=== PATIENT | female | born 1950 | race Caucasian/White ===

== ENCOUNTER 2017-02-05 16:47 | Emergency (ER) | payer OTHER ==
[~2017-02-05] VITALS: Wt 59.5 kg
[~2017-02-05 16:47] MED LIST: ACET325T45 PO; ALEN70TA30 PO; AMLO-147 PO; AMOX500T PO; CLAR500T PO; DEXL60CA2 PO; LORA0.5T PO; LOSA50TA6 PO; ONDA4TAB8 PO; PANT40TA3 PO; RANI150T5 PO
[2017-02-05] MEDS ORDERED: SOD CHLORIDE 0.9% 1,000 ML IV STA (17:57)
[2017-02-05] MEDS ORDERED: ONDANSETRON 4 MG INJ IV STA (17:57)
[2017-02-05] MEDS ORDERED: FAMOTIDINE 20 MG INJ IV STA (17:57)
[2017-02-05 18:25] LABS: ADD SCAN DIFF NO
[2017-02-05 18:26] LABS: BASOPHILS % 0.3 % (0.0-2.0); HEMOGLOBIN 13.3 g/dl (12.0-16.0); LYMPHOCYTES # 1.5 10^3/ul (0.8-2.9); LYMPHOCYTES % 19.1 % (15.0-51.0); MEAN CORPUSCULAR HEMOGLOBIN 29.4 pg (29.0-33.0); MEAN CORPUSCULAR HGB CONC 33.3 g/dl (32.0-37.0); MEAN CORPUSCULAR VOLUME 88.5 fl (82.0-101.0); MEAN PLATELET VOLUME 9.7 fl (7.4-10.4); MONOCYTE # 0.5 10^3/ul (0.3-0.9); MONOCYTES % 6.2 % (0.0-11.0); NEUTROPHIL # 5.7 10^3/ul (1.6-7.5); NEUTROPHILS % 74.1 % (39.0-77.0); PLATELET COUNT 290 10^3/UL (140-415); RED BLOOD COUNT 4.52 10^6/ul (4.20-5.40); WHITE BLOOD COUNT 7.6 10^3/ul (4.8-10.8)
[2017-02-05 18:42] LABS: ALBUMIN 4.8 g/dl (3.3-4.9)
[2017-02-05 18:43] LABS: POTASSIUM 3.7 mmol/L (3.5-5.1)
[2017-02-05 18:45] LABS: ALBUMIN/GLOBULIN RATIO 1.14; BILIRUBIN,INDIRECT 0.2 mg/dl (0-1.1); BILIRUBIN,TOTAL 0.2 mg/dl (0.2-1.3); CREATININE 0.69 mg/dl (0.44-1.00)
[2017-02-05 18:46] LABS: CALCIUM 9.3 mg/dl (8.4-10.2)
[2017-02-05 19:01] LABS: ADD UMIC YES; URINE BILIRUBIN (Dip) NEGATIVE (NEGATIVE); URINE BLOOD (Dip) 1+ (NEGATIVE); URINE COLOR LT. YELLOW (YELLOW); URINE GLUCOSE (Dip) NEGATIVE (NEGATIVE); URINE KETONES (Dip) NEGATIVE (NEGATIVE); URINE LEUKOCYTE ESTERASE (Dip) TRACE (NEGATIVE); URINE NITRITE (Dip) NEGATIVE (NEGATIVE); URINE TOTAL PROTEIN (Dip) NEGATIVE (NEGATIVE); URINE UROBILINOGEN (Dip) 0.2 E.U./dL (0.1-1.0)
[2017-02-05 19:07] LABS: URINE RBCS 0-2 /HPF (0)
--- NOTE | 2017-02-05 19:12 | RADRPT ---
PROCEDURE: CT abdomen and pelvis without contrast. CLINICAL INDICATION: Abdominal Pain TECHNIQUE: CT scan of the abdomen and pelvis without contrast was performed and is reconstructed a t 2.5 mm contiguous axial intervals from the dome of the diaphragm to the inferior pubic rami.. The patient was scanned without intravenous contrast. Sagittal and coronal reformatted images were obt ained from the axial source images. The calculated radiation dose measures 337 mGy centimeters. The CTDI measures 7 mGy. COMPARISON: None. FINDINGS: The lung bases are clear of any infiltrate or nodule. No effusion is seen. The liver is of normal size, contour and attenuation with no mass or ductal dilatation. No gallston es are visualized. No splenic, adrenal or pancreatic abnormalities present. Kidneys are of normal size and contour. No hydronephrosis, calculus or masses seen. Ureters are o f normal course and caliber with no stone. No bladder mass or stone is present. Uterus is unremarka ble. No adnexal mass is seen. There is no aneurysm. No adenopathy is present. No bowel mass or obstruction is present. There has been partial resection of the transverse colon . The appendix is normal. No phlegmon, ascites or pneumoperitoneum is visualized. There is a chronic moderate superior endplate compression fracture of L1. IMPRESSION: No evidence of urolithiasis, obstructive uropathy, diverticulitis or appendicitis. Status post resection transverse colon. No bowel mass or obstruction. Chronic superior endplate compression fracture L1. .Zac Gerber MD, MD Date Time Electronically viewed and signed by .Zac Gerber MD, on 02/05/2017 19:11 .A/
[2017-02-05] MEDS ORDERED: CIPR500T4 PO (19:20)
--- NOTE | 2017-02-05 19:20 | ERD ---
ER Documentation Chief Complaint Date/Time DATE: 02/05/17 TIME: 19:18 Chief Complaint EPIGASTRIC PAIN WITH NAUSEA SINCE AM HPI This is a 66-year-old female presents to the emergency room for evaluation of abdominal cramping, nausea for one days duration. The patient localizes her cramping to the midportion of abdomen denies any radiation. She denies any associated diarrhea with this, and states that her coughing is sometimes worse when she urinates. The patient does state she has had multiple previous abdominal surgeries, and came to the ER today for further evaluation of her symptoms. ROS All systems reviewed and are negative except as per history of present illness. Medications Home Meds Active Scripts Ondansetron Hcl* (Zofran*) 4 Mg Tablet, 4 MG PO Q8H Y for NAUSEA AND/OR VOMITING , #20 TAB Prov:ANALY AMARAL MD 03/04/16 Pantoprazole* (Protonix*) 40 Mg Tablet., 40 MG PO DAILY, #20 TAB Prov:YASMANY REARDON MD 11/08/15 Reported Medications Dexlansoprazole (Dexilant) 60 Mg Cap., 60 MG PO QAM, #30 CAP 03/04/16 Clarithromycin* (Clarithromycin*) 500 Mg Tablet, 500 MG PO BID, TAB 03/04/16 Amoxicillin* (Amoxil*) 500 Mg Tablet, 500 MG PO BID, TAB PER PT STARTED 02/27/16 03/04/16 Dexlansoprazole (Dexilant) 60 Mg Cap., 60 MG PO QAM, #30 CAP 03/04/16 Acetaminophen* (Acetaminophen*) 325 Mg Tablet, 325 MG PO Q4H Y for PAIN AND OR ELEVATED TEMP, #30 TAB 02/27/16 Amlodipine Besylate* (Amlodipine Besylate*) 10 Mg Tablet, 10 MG PO DAILY, #30 TAB 02/27/16 Losartan Potassium* (Losartan Potassium*) 50 Mg Tablet, 50 MG PO DAILY, TAB 02/27/16 Alendronate Sodium* (Fosamax*) 70 Mg Tablet, 70 MG PO SUNDAYS, #4 TAB 02/27/16 Lorazepam* (Lorazepam*) 0.5 Mg Tablet, 0.5 MG PO Q8 Y for NAUSEA, TAB 02/27/16 Ranitidine Hcl* (Ranitidine Hcl*) 150 Mg Tablet, 150 MG PO Q12, #60 TAB 02/27/16 Allergies Allergies: Coded Allergies: No Known Allergy (Unverified , 11/24/14) PMhx/Soc History of Surgery: Yes (colon resection ) Anesthesia Reaction: No Hx Neurological Disorder: No Hx Respiratory Disorders: No Hx Cardiac Disorders: Yes (HTN) Hx Psychiatric Problems: Yes (anixety) Hx Miscellaneous Medical Probl: No Hx Alcohol Use: No Hx Substance Use: No Hx Tobacco Use: No Smoking Status: Never smoker Physical Exam Vitals Vital Signs Date Time Temp Pulse Resp B/P Pulse Ox O2 Delivery O2 Flow Rate FiO2 02/05/17 16:49 97.6 81 12 131/63 98 Physical Exam INITIAL VITAL SIGNS: Reviewed by me GENERAL: The patient is well developed and appropriate for usual state of health in no apparent distress HEENT: Pupils equal, round, and reactive to light. EOMI. There is no scleral icterus. NECK: C-spine is soft and supple, there is no meningismus. There is no cervical lymphadenopathy. LUNGS: Clear to auscultation bilaterally. There are no rales, wheezes or rhonchi. HEART: Regular rate and rhythm, no murmurs, clicks, rubs or gallops. ABDOMEN: Soft, non-tender, non-distended. There are bowel sounds in all four quadrants. No rebound or guarding. EXTREMITIES: There is no peripheral cyanosis or edema. No focal swelling or erythema. NEUROLOGICAL: The patient moves all four extremities with 5/5 strength. Cranial nerves II - XII are intact. Normal gait. Alert and oriented SKIN: There is no apparent rash or petechiae. HEME/LYMPHATIC: There is no evidence of excessive bruising or lymphedema. PSYCHIATRIC: The patient does not appear anxious or depressed. Result Diagram: 02/05/17181402/05/171814 Results 24 hrs Laboratory Tests Test 02/05/17 17:57 02/05/17 18:15 Urine Color LT. YELLOW Urine Clarity CLEAR Urine pH 6.0 Urine Specific [place] <=1.005 Urine Ketones NEGATIVE Urine Nitrite NEGATIVE Urine Bilirubin NEGATIVE Urine Urobilinogen 0.2 E.U./dL Urine Leukocyte Esterase TRACE Urine Microscopic RBC 0-2/HPF Urine Microscopic WBC 0-2/HPF Urine Hemoglobin 1+ Urine Glucose NEGATIVE% Urine Total Protein NEGATIVE White Blood Count 7.610^3/ul Red Blood Count 4.5210^6/ul Hemoglobin 13.3g/dl Hematocrit 40.0% Mean Corpuscular Volume 88.5fl Mean Corpuscular Hemoglobin 29.4pg Mean Corpuscular Hemoglobin Concent 33.3g/dl Red Cell Distribution Width 12.0% Platelet Count 59291^3/UL Mean Platelet Volume 9.7fl Neutrophils % 74.1% Lymphocytes % 19.1% Monocytes % 6.2% Eosinophils % 0.0% Basophils % 0.3% Nucleated Red Blood Cells % 0.0/100WBC Neutrophils # 5.710^3/ul Lymphocytes # 1.510^3/ul Monocytes # 0.510^3/ul Eosinophils # 0.010^3/ul Basophils # 0.010^3/ul Nucleated Red Blood Cells # 0.010^3/ul Sodium Level 142mmol/L Potassium Level 3.7mmol/L Chloride Level 104mmol/L Carbon Dioxide Level 24mmol/L Anion Gap 18 Blood Urea Nitrogen 13mg/dl Creatinine 0.69mg/dl Glucose Level 127mg/dl Calcium Level 9.3mg/dl Total Bilirubin 0.2mg/dl Direct Bilirubin 0.00mg/dl Indirect Bilirubin 0.2mg/dl Aspartate Amino Transf (AST/SGOT) 25IU/L Alanine Aminotransferase (ALT/SGPT) 31IU/L Alkaline Phosphatase 84IU/L Total Protein 9.0g/dl Albumin 4.8g/dl Globulin 4.20g/dl Albumin/Globulin Ratio 1.14 Lipase 71U/L Current Medications Medications (Trade) Dose Ordered Sig/Tricia Route PRN Reason Start Time Stop Time Status Last Admin Dose Admin Sodium Chloride (NS) 1,000 ml @ 1,000 mls/hr Q1H STAT IV 02/05/17 17:57 02/05/17 18:56 DC 02/05/17 18:25 Ondansetron HCl (Zofran Inj) 4 mg ONCE STAT IV 02/05/17 17:57 02/05/17 17:58 DC 02/05/17 18:24 Famotidine (Pepcid Iv) 20 mg ONCE STAT IV 02/05/17 17:57 02/05/17 17:58 DC 02/05/17 18:24 Procedures/MDM CT abdomen pelvis without: No evidence of urolithiasis, obstructive uropathy, diverticulitis or appendicitis. Status post resection transverse colon. No bowel mass or obstruction. Chronic superior endplate compression fracture L1. This 66-year-old female presents to the emergency room for evaluation of abdominal cramping, nausea. When I evaluate this patient she was in no acute distress. The patient has had multiple previous surgeries and a CT was obtained to rule out obstruction. The patient has no sign of obstruction. She does have leukocyte esterase in her urine. She was given ciprofloxacin in the emergency room. My suspicion is that this patient does have a urinary tract infection with mild abdominal pain. She is nontoxic appearing, no signs of acute abdomen or surgical abdomen in the emergency room. Departure Diagnosis: Primary Impression: Abdominal pain Additional Impression: Acute cystitis Condition: Stable ARIEL PETERSON DO February 05, 2017 19:20
[2017-02-05] MEDS ORDERED: CALC-780 PO (19:29)
[2017-02-05] MEDS ORDERED: VALS320T11 PO (19:29)
[2017-02-05] MEDS ORDERED: CIPROFLOXACIN 500 MG TAB PO ONE (19:30)
[2017-02-05 19:31] VITALS: BP 146/70; PULSE 86; RESP 16
[2017-02-05] MEDS ORDERED: OMEP40CA6 PO (19:31)
== END 2017-02-05 19:31 | disposition home or self-care (01) ==
LOC: E/R 16:47
DX: R10.13 Epigastric pain (principal); N30.00 Acute cystitis without hematuria; I10 Essential (primary) hypertension; R11.0 Nausea; R40.2142 Coma scale, eyes open, spontaneous, at arrival to emergency department; R40.2252 Coma scale, best verbal response, oriented, at arrival to emergency department; R40.2362 Coma scale, best motor response, obeys commands, at arrival to emergency department
CPT/HCPCS: 36415; 74176; 80053; 81001; 83690; 85025; 96374; 96375; 99285; J2405; J7030

== ENCOUNTER 2018-09-02 10:04 | Day surgery (SDC) | END 2018-09-02 13:54 | disposition home or self-care (01) ==